=== PATIENT | female | born 1990 | race Caucasian/White ===

== ENCOUNTER 2017-11-25 02:02 | Emergency (ER) | payer OTHER ==
--- NOTE | 2017-11-25 02:25 | PDOC ---
History of Present Illness <Hawa Anguiano - Last Filed: 11/25/17 04:10> - General History Source: Patient Exam Limitations: No Limitations - History of Present Illness Initial Comments: 11/25/17 03:26 Nellie is a 27 yo F with no pertinent past medical history recently evaluated for gastritis by her PCP (Dr. Jensen) who presents to the emergency department with epigastric tenderness that has been ongoing since 11pm 11/24/2017. She states she has had epigastric pain for 1 week and recently completed a 7 day course of pepcid by her PCP. She states she ate at approximately 6:30 pm at a [employer] house with alcohol. The pain is described as sharp, 8/10 radiating to the upper back. Antacid used to help her but is not for this episode. Worsens with laying down. Denies the following: fever, headache, N/V, chest pain, SOB, diarrhea, hematuria, dysuria. Pmhx: None. Shx: None Medications: None active Allergies: None Social: Denies smoking and substance use. Drinks alcohol occasionally. <Bogdan Levi - Last Filed: 11/25/17 04:19> - General Stated Complaint: ABD PAIN Time Seen by Provider: 11/25/17 02:12 Past History <Hawa Anguiano - Last Filed: 11/25/17 04:10> <Bogdan Levi - Last Filed: 11/25/17 04:19> - Past Medical History Allergies/Adverse Reactions: Allergies Allergy/AdvReac Type Severity Reaction Status Date / Time No Known Allergies Allergy Verified 11/25/17 02:28 Home Medications: Ambulatory Orders NK [No Known Home Medication] 11/25/17 *Physical Exam - Vital Signs Last Vital Signs Temp Pulse Resp BP Pulse Ox 98.6 F 84 20 117/68 98 11/25/17 02:29 11/25/17 02:29 11/25/17 02:29 11/25/17 02:29 11/25/17 02:29 <Hawa Anguiano - Last Filed: 11/25/17 04:10> ED Treatment Course - LABORATORY CBC & Chemistry Diagram: 11/25/17 01:39 11/25/17 01:39 - ADDITIONAL ORDERS Additional order review: Laboratory Results 11/25/17 11/25/17 01:39 01:39 Sodium 138 Potassium 4.1 Chloride 104 Carbon Dioxide 28 Anion Gap 6 L BUN 17 Creatinine 0.9 Creat Clearance w eGFR > 60 Random Glucose 107 H Calcium 9.0 Total Bilirubin 0.2 AST 40 H ALT 110 H Alkaline Phosphatase 89 Total Protein 8.0 Albumin 3.6 Lipase 205 11/25/17 01:39 RBC 4.71 MCV 85.1 MCHC 34.3 RDW 14.6 MPV 8.8 Neutrophils % 54.2 Lymphocytes % 33.6 Monocytes % 8.6 Eosinophils % 3.2 Basophils % 0.4 - Medications Given in the ED: ED Medications Discontinued Medications Generic Name Dose Route Start Last Admin Trade Name Freq PRN Reason Stop Dose Admin Al Hydroxide/Mg Hydroxide 30 ml 11/25/17 02:32 11/25/17 02:52 Mylanta Oral Suspension - PO 11/25/17 02:33 30 ml ONCE ONE Administration Dicyclomine HCl 10 mg 11/25/17 02:32 11/25/17 02:51 Bentyl Oral Solution - PO 11/25/17 02:33 10 mg ONCE ONE Administration Famotidine/Sodium Chloride 20 mg in 50 mls @ 100 mls/hr 11/25/17 02:42 02:52 Pepcid 20 Mg Premixed Ivpb - IVPB 11/25/17 03:11 100 mls/hr ONCE ONE Administration Lidocaine HCl 20 ml 11/25/17 02:32 11/25/17 02:52 Xylocaine 2% Viscous Oral - MM 11/25/17 02:33 Not Given ONCE ONE <Hawa Anguiano - Last Filed: 11/25/17 04:10> - LABORATORY CBC & Chemistry Diagram: 11/25/17 01:39 11/25/17 01:39 <Bogdan Levi - Last Filed: 11/25/17 04:19> Medical Decision Making - Medical Decision Making 11/25/17 03:31 ddx gastritis vs pancreatitis vs GERD vs PUD vs cholelithiasis. work up: CBC, CMP, lipase, and RUQ US ordered. given bentyl, maalox, and pepcid. She states she had improvement of pain to 5/10 from 810. <Bogdan Levi - Last Filed: 11/25/17 04:19> *DC/Admit/Observation/Transfer - Discharge Dispostion Decision to Admit order: No <AnguianoHawa - Last Filed: 11/25/17 04:10> - Discharge Dispostion Decision to Admit order: No <Bogdan Levi - Last Filed: 11/25/17 04:19> Diagnosis at time of Disposition: Gastroenteritis - Discharge Dispostion Disposition: HOME Condition at time of disposition: Stable - Referrals Referrals: ON STAFF,NOT [Primary Care Provider] - Donny Contreras MD [Staff Physician] - - Patient Instructions Printed Discharge Instructions: Viral Gastroenteritis
[2017-11-25 02:31] VITALS: BP 117/68; PULSE 84; TEMP 98.6; BMI 41.7
[2017-11-25] MEDS ORDERED: LIDOCAINE VISCOUS 2% ORAL/TOP 20 ML UNIT-DOSE CUP MM ONE (02:32)
[2017-11-25] MEDS ORDERED: MAG HYDROX/AL HYDROX/SIMETH 30 ML UNIT-DOSE CUP PO ONE (02:32)
[2017-11-25] MEDS ORDERED: DICYCLOMINE HCL 10 MG/5 ML PO ONE (02:32)
[2017-11-25] MEDS ORDERED: FAMOTIDINE 20 MG/50 ML IVPB 20 MG/50 ML MG IVPB ONE ×2 (02:42→02:46)
[2017-11-25] MEDS ORDERED: LIDOCAINE VISCOUS 2% ORAL/TOP 20 ML UNIT-DOSE CUP ONE (02:46)
[2017-11-25] MEDS ORDERED: MAG HYDROX/AL HYDROX/SIMETH 30 ML UNIT-DOSE CUP ONE (02:46)
[2017-11-25 02:51] LABS: BASO % 0.4 % (0-2.0); EOS % 3.2 % (0-4.5); HEMATOCRIT 40.1 % (32.4-45.2); HEMOGLOBIN 13.7 GM/dL (10.7-15.3); LYMPH % 33.6 % (8-40); MCH 29.2 pg (25.7-33.7); MCHC 34.3 g/dl (32.0-36.0); MEAN CELL VOLUME 85.1 fl (80-96); MEAN PLT VOLUME 8.8 fl (7.5-11.1); MONO % 8.6 % (3.8-10.2); NEUT % 54.2 % (42.8-82.8); PLATELET COUNT 255 K/MM3 (134-434); RBC 4.71 M/mm3 (3.60-5.2); RDW 14.6 % (11.6-15.6); WHITE BLOOD COUNT 8.1 K/mm3 (4.0-10.0)
[2017-11-25 03:26] LABS: ALBUMIN 3.6 g/dl (3.4-5.0); ANION GAP 6 (8-16); BLOOD UREA NITROGEN 17 mg/dL (7-18); CHLORIDE 104 mmol/L (98-107); CO2 28 mmol/L (21-32); CREATININE 0.9 mg/dL (0.55-1.02); GLUCOSE,RANDOM 107 mg/dL (74-106); POTASSIUM 4.1 mmol/L (3.5-5.1); SGOT/AST 40 U/L (15-37); SGPT/ALT 110 U/L (12-78); SODIUM 138 mmol/L (136-145)
[2017-11-25 03:28] LABS: ALK PHOS 89 U/L (45-117); BILIRUBIN,TOTAL 0.2 mg/dL (0.2-1.0)
--- NOTE | 2017-11-25 04:01 | PDOC ---
Attending Attestation - HPI HPI: 11/25/17 04:01 The patient is a 27 year old female, with a significant past medical history of , who presents to the emergency department with, epigastric pain. As per patient , he symptoms onset at 11pm after eating at a [place] [employer] and consuming alcohol. She describes her pain as 8/10 and radiating to her back. She is currently following up with her PCP, Dr. Jensen, for gastritis and recently finished 7 days of Pepcid. She denies recent fevers, chills, headache or dizziness. She denies recent nausea, vomit, diarrhea or constipation. She denies recent dysuria, frequency, urgency or hematuria. She denies recent chest pain or shortness of breath. Allergies: NKA Past surgical history: None reported. Social history: Nonsmoker. Denies EtOH use and recreational drug use. Primary Care Physician: Dr. Jensen - Physicial Exam PE: 11/25/17 04:09 GENERAL: Awake, alert, and fully oriented, in no acute distress HEAD: No signs of trauma EYES: PERRLA, EOMI, sclera anicteric, conjunctiva clear ENT: Auricles normal inspection, hearing grossly normal, nares patent, oropharynx clear without exudates. Moist mucosa NECK: Normal ROM, supple, no lymphadenopathy, JVD, or masses LUNGS: Breath sounds equal, clear to auscultation bilaterally. No wheezes, and no crackles HEART: Regular rate and rhythm, normal S1 and S2, no murmurs, rubs or gallops ABDOMEN: Obese. Soft, nontender, normoactive bowel sounds. No guarding, no rebound. No masses EXTREMITIES: Normal range of motion, no edema. No clubbing or cyanosis. No cords, erythema, or tenderness NEUROLOGICAL: Cranial nerves II through XII grossly intact. Normal speech, normal gait SKIN: Warm, Dry, normal turgor, no rashes or lesions noted. <Davidson Almaguer - Last Filed: 11/25/17 04:09> - Resident Resident Name: Bogdan Levi - ED Attending Attestation I have performed the following: I have examined & evaluated the patient, The case was reviewed & discussed with the resident, I agree w/resident's findings & plan - Medical Decision Making 11/25/17 20:05 Labs normal; pt feeling better with treatment; exam normal. Pt s stable for d/c / home. Likely overeating or food poisoning at the restaurant. <Hawa Anguiano - Last Filed: 11/25/17 20:06> Attestations - Attestations 11/25/17 04:01 Documentation prepared by Davidson Almaguer, acting as emergency medical technician basic for Hawa Anguiano MD. <Davidson Almaguer - Last Filed: 11/25/17 04:09>
[2017-11-25 04:43] LABS: URINE APPEARANCE CLEAR; URINE BILIRUBIN NEGATIVE (<2.0 mg/dL); URINE COLOR YELLOW; URINE GLUCOSE (UA) NEGATIVE (NEGATIVE); URINE KETONE NEGATIVE (NEGATIVE); URINE LEUK ESTERASE NEGATIVE (NEGATIVE); URINE NITRITE NEGATIVE (NEGATIVE); URINE PROTEIN NEGATIVE (NEGATIVE); URINE UROBILINOGEN NEGATIVE mg/dL (0.2-1.0)
== END 2017-11-25 04:13 | disposition home or self-care (01) ==
LOC: JER 02:02
PROC: 3E033GC Introduction of Other Therapeutic Substance into Peripheral Vein, Percutaneous Approach (ICD-10-PCS; principal; 2017-11-25)
DX: K52.9 Noninfective gastroenteritis and colitis, unspecified (principal)
CPT/HCPCS: 36415; 80053; 81003; 83690; 85025; 99282-25